=== PATIENT | female | born 1955 | race Two or more races ===

== ENCOUNTER 2023-08-20 06:58 | Day surgery (SDC) | payer OTHER | END 2023-08-20 13:10 | disposition home or self-care (01) | LOC: AMB-ENDOS 06:58 → CIR.AMB 13:30 | PROVIDERS: ATTEND Surgery | DX: D12.0 Benign neoplasm of cecum (principal); K59.00 Constipation, unspecified; K62.5 Hemorrhage of anus and rectum; K56.699 Other intestinal obstruction unspecified as to partial versus complete obstruction; K62.89 Other specified diseases of anus and rectum; K64.8 Other hemorrhoids; Z20.822 Contact with and (suspected) exposure to COVID-19 ==

== ENCOUNTER 2023-11-11 13:05 | Emergency (ER) | payer OTHER ==
[~2023-11-11] VITALS: Ht 154.9 cm; Wt 59.0 kg
== END 2023-11-11 17:23 | disposition home or self-care (01) ==
LOC: ER 13:06
DX: H81.10 Benign paroxysmal vertigo, unspecified ear (principal); Z88.8 Allergy status to other drugs, medicaments and biological substances
CPT/HCPCS: 96372; 99284; J1885; J2765

== ENCOUNTER 2025-05-17 15:14 | Emergency (ER) | payer OTHER ==
[~2025-05-17] VITALS: Ht 154.9 cm; Wt 59.0 kg
[~2025-05-17 15:14] MED LIST: CLONAZEPAM1 MG PO; MIRTAZAPINE45 MG PO; NORVASC2.5 M1 PO; POLY119PG PO; SYNTHROID50 MCG PO
[2025-05-17 16:39] VITALS: BP 136/83; O2SAT 98
[2025-05-17] MEDS ORDERED: GUAIFEN/DEXTROMETHORPHAN/PE 10 ML BLIST.PACK PO ONE (17:30)
[2025-05-17] MEDS ORDERED: LEVALBUTEROL HCL 0.63 MG/3 ML SOLUTION IH SCH (17:30)
[2025-05-17 18:03] LABS: BASO % 0.7 % (0.1-1.2); EOS # 0.15 (0.04-0.54); EOS % 2.6 % (0.7-7.0); LYMPH # 2.22 (1.18-3.74); LYMPH % 37.9 % (19.3-53.1); MEAN PLATELET VOLUME 10.70 fl (9.4-12.4); MONO # 0.54 (0.24-0.82); MONO % 9.2 % (4.7-12.5); NEUT # 2.88 (1.56-6.13); NEUT % 49.3 % (34.0-71.1); RED CELL DISTRIBUTION WIDTH 12.6 % (11.6-14.4)
[2025-05-17 18:25] LABS: COVID-19 AG POSITIVE (NEGATIVE)
[2025-05-17 18:29] LABS: BUN CREA RATIO 28.0 (7.0-25.0); CREATININE SERUM 0.8 mg/dL (0.55-1.02); GFR 70.71; GLUCOSE FASTING 101.0 mg/dL (65-100); OSMOLALITY SERUM 292.0 MOSM/KG (275-295)
== END 2025-05-17 20:35 | disposition home or self-care (01) ==
LOC: ER 15:14
PROVIDERS: Emergency Medicine
DX: U07.1 COVID-19 (principal); J45.901 Unspecified asthma with (acute) exacerbation; I10 Essential (primary) hypertension; E03.8 Other specified hypothyroidism; Z88.5 Allergy status to narcotic agent